=== PATIENT | female | born 1980 | race Caucasian/White ===

== ENCOUNTER → 2017-06-08 16:08 | Outpatient (CLI) | payer MEDICAID, SELFPAY ==
[2017-06-19 08:58] LABS: HPV HC, High Risk Positive (Negative)
[2017-06-19 08:59] LABS: HPV Reflexed? YES, CHARGE PATIENT
== END ==
PROVIDERS: Visit Provider Obstetrics & Gynecology
DX: R87.612 Low grade squamous intraepithelial lesion on cytologic smear of cervix (LGSIL) (principal)
CPT/HCPCS: 87624; 88175; G0145

== ENCOUNTER → 2017-07-10 17:18 | Outpatient (CLI) | payer MEDICAID, SELFPAY ==
[2017-07-10 20:39] LABS: Chlamydia Trachomatis by PCR Negative (Negative); Neisserai gonorrhoeae by PCR Negative (Negative); Probe Check PASS; Sample Adequacy Control PASS; Specimen Processing Control PASS
== END ==
PROVIDERS: Visit Provider Obstetrics & Gynecology
DX: Z11.3 Encounter for screening for infections with a predominantly sexual mode of transmission (principal)
CPT/HCPCS: 87491; 87591

== ENCOUNTER → 2017-07-31 16:12 | Outpatient (CLI) | payer MEDICAID, SELFPAY ==
[2017-07-31 17:31] LABS: Absolute Lymphocyte Count 2.72 X10^3/ul (0.83-4.51); Absolute Neutrophil Count 9.3 X10^3/uL (2.0-7.7); Basophil# 0.03 X10^3/uL; Basophil% 0.2 % (0-1); Eosinophil# 0.32 X10^3/uL; Eosinophils% 2.4 % (0-5); Hematocrit 40.1 % (37-47); Hemoglobin 12.7 g/dl (12.0-15.0); Lymphocyte # 2.72 X10^3/ul (4.0); Lymphocyte % 20.8 % (19-41); Mean Corp Hgb Conc 31.7 g/gl (32-36); Mean Corpuscular Hgb 25.5 pg (27.0-32.0); Mean Corpuscular Volume 80.5 fL (81-99); Mean Platelet Vol. 9.9 fl (6.2-12.0); Monocyte# 0.73 X10^3/uL; Monocyte% 5.6 % (0-10); Neutrophil # 9.25 X10^3/uL (2.7-7.7); Neutrophil % 70.6 % (47-70); Platelet Count 324 K/mm3 (150-450); RBC Distribution Width CV 15.5 % (11.6-14.6); RBC Distribution Width SD 45.5 fl (35.1-43.9); Red Blood Count 4.98 M/mm3 (4.2-5.4); White Blood Count 13.1 K/mm3 (4.4-11.0)
[2017-07-31 17:35] LABS: Color, Urine Yellow (Yellow); Glucose, Dipstick Normal (Normal); Ketone-Dipstick Negative (Negative); Leukocyte Esterase-Dipstick 500 /ul (Negative); Nitrite-Dipstick Negative (Negative); Occult Blood-Urine 50 /ul (Negative); Protein-Dipstick 30 mg/dl (Negative); Specific Gravity, Urine 1.025 (1.002-1.030); Urine Bilirubin Dipstick Negative (Negative); Urine Clarity Sl. Cloudy (Clear); Urine Urobilinogen Normal (Normal)
[2017-07-31 17:39] LABS: POSITIVE COUNT NO; POSITIVE DIFFERENTIAL NO; POSITIVE MORPHOLOGY NO
[2017-07-31 18:13] LABS: Thyroid Stim Hormone (TSH) 2.11 uIU/mL (0.358-3.74)
[2017-08-01 09:46] LABS: HIV - WCH Non-Reactive (Nonreactive); Rubella IgG 19.6 IU/mL
[2017-08-02 12:56] LABS: HEPATITIS B SURFACE AG Negative (Negative); Hep C Antibodies 0.1 s/co ratio (0.0-0.9)
[2017-08-03 03:11] LABS: Prenatal RPR NONREACTIVE (NONREACTIVE)
== END ==
PROVIDERS: Visit Provider Obstetrics & Gynecology
DX: Z34.81 Encounter for supervision of other normal pregnancy, first trimester (principal)
CPT/HCPCS: 36415; 81002; 84443; 85025; 86703; 86762; 86803; 87340

== ENCOUNTER → 2017-12-18 08:59 | Outpatient (CLI) | payer MEDICAID, SELFPAY ==
[2017-12-18 11:45] LABS: Hematocrit 37.6 % (37-47); Hemoglobin 12.1 g/dl (12.0-15.0); Mean Corp Hgb Conc 32.2 g/gl (32-36); Mean Corpuscular Hgb 26.1 pg (27.0-32.0); Mean Platelet Vol. 10.4 fl (6.2-12.0); Platelet Count 232 K/mm3 (150-450); RBC Distribution Width CV 15.3 % (11.6-14.6); RBC Distribution Width SD 44.7 fl (35.1-43.9); Red Blood Count 4.64 M/mm3 (4.2-5.4); White Blood Count 13.6 K/mm3 (4.4-11.0)
[2017-12-18 11:46] LABS: Scan Indicated on CBC? Y/N NO
[2017-12-18 11:51] LABS: Glucose Challenge Gest 1H 50g 143 mg/dL (70-140)
[2017-12-20 16:09] LABS: HPV Reflexed? NOT INDICATED
== END ==
PROVIDERS: Visit Provider Obstetrics & Gynecology
DX: R87.610 Atypical squamous cells of undetermined significance on cytologic smear of cervix (ASC-US) (principal); R87.810 Cervical high risk human papillomavirus (HPV) DNA test positive; Z34.83 Encounter for supervision of other normal pregnancy, third trimester
CPT/HCPCS: 36415; 82950; 85027; 88175; G0145

== ENCOUNTER → 2017-12-28 09:53 | Outpatient (CLI) | payer MEDICAID, SELFPAY ==
[2017-12-28 11:57] LABS: Glucose GTT-Gestation. Fasting 82 mg/dL (<105)
[2017-12-28 11:59] LABS: Glucose GTT-Gestational 1 Hr 140 mg/dL (<190)
[2017-12-28 13:52] LABS: Glucose GTT-Gestational 3 Hr 98 L (<145)
[2017-12-28 13:58] LABS: Glucose GTT-Gestational 2 Hr 113 mg/dL (<165)
== END ==
PROVIDERS: Family Provider Family Medicine; PCP Family Medicine; Visit Provider Obstetrics & Gynecology
DX: O24.912 Unspecified diabetes mellitus in pregnancy, second trimester (principal); Z3A.00 Weeks of gestation of pregnancy not specified
CPT/HCPCS: 36415; 82951; 82952

== ENCOUNTER 2018-01-20 14:41 | Emergency (ER) | payer MEDICAID, SELFPAY ==
[2018-01-20 14:43] VITALS: BP 148/80; PULSE 87; RESP 16; TEMP 37.3; O2SAT 94; BMI 54.4
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
[2018-01-20 15:25] VITALS: BP 143/66; PULSE 85; RESP 16; O2SAT 96
== END 2018-01-20 15:27 | disposition home or self-care (01) ==
LOC: ED 15:22
PROVIDERS: Emergency Provider Emergency Medicine; Family Provider Family Medicine; PCP Family Medicine
DX: O26.893 Other specified pregnancy related conditions, third trimester (principal); Z34.93 Encounter for supervision of normal pregnancy, unspecified, third trimester; Z3A.33 33 weeks gestation of pregnancy; V89.2XXA Person injured in unspecified motor-vehicle accident, traffic, initial encounter; Y93.I9 Activity, other involving external motion; Y92.410 Unspecified street and highway as the place of occurrence of the external cause; Y99.8 Other external cause status
CPT/HCPCS: 59025; 59050; 99218; 99282; G0378

== ENCOUNTER 2018-01-20 15:40 | Outpatient (CLI) | payer MEDICAID, SELFPAY ==
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
== END 2018-01-20 18:30 | disposition home or self-care (01) ==
LOC: WPOUT 16:00 → WP 16:01
PROVIDERS: Family Provider Family Medicine; PCP Family Medicine; Visit Provider Obstetrics & Gynecology
DX: Z34.93 Encounter for supervision of normal pregnancy, unspecified, third trimester (principal)
CPT/HCPCS: 59025; 59050; 99218; G0378

== ENCOUNTER → 2018-02-08 10:46 | Outpatient (CLI) | payer MEDICAID, SELFPAY ==
[2018-02-08 14:45] LABS: Group B Strep DNA By PCR Negative (Negative); Internal Control PASS; Probe Check PASS; Specimen Processing Control PASS
== END ==
PROVIDERS: Visit Provider Obstetrics & Gynecology
DX: Z36.85 Encounter for antenatal screening for Streptococcus B (principal)
CPT/HCPCS: 87081; 87653

== ENCOUNTER 2018-02-12 05:04 | Inpatient (IN) | payer MEDICAID, SELFPAY ==
[2018-02-05 15:43] VITALS: BMI 53.9
--- NOTE | 2018-02-11 | PLAC_PTH ---
PATIENT: CHERI DODSON LOC: WP U#:[id number] AGE/SX: 37/F ROOM: [facility] RE02/12/[address]: Dr. Jasmin Ryder MD : 1980 BED: 1 DIS: 02/15/2018 SPEC #: [id number] RECD: 02/12/18 13:51 STATUS: TARIQ ED #: [id number] NEENA: 02/11/18 00:[address]: Jasmin Ryder DEPT: SURGICAL PATHOLOGY RECD BY: Zack Valdez Tissues: A - Placenta, NOS B - Placenta, NOS Procedures: Surgery Specimen Level IV Surgery Specimen Level V HEADER OPERATION: Repeat section PRE-OP DIAGNOSIS: Repeat section TISSUE SUBMITTED: A - Placenta, B - Tissue MICROSCOPIC DIAGNOSIS A. Placenta: Placental disc - third trimester placenta (514 gm), disrupted. Membranes - no pathologic diagnosis. Umbilical cord - three blood vessels and no pathologic diagnosis. B. Tissue: A piece of placental tissue, on pathologic diagnosis. SJ:rg 02/14/18 MICROSCOPIC DESCRIPTION Slides are reviewed. GROSS DESCRIPTION A - SPECIMEN: PLACENTA / CLINICAL INFORMATION: A. Weight: 3.105 kg B. Gestational Age: 37 weeks C. Sex: Male PLACENTAL WEIGHT (POST FIXATION): The body of the placenta including disrupted pieces weight in aggregate 514 gm. PLACENTAL DIMENSIONS: The body of the placenta measures 22 x 21 x 3 cm and the disrupted pieces measure in aggregate 5 x 4 x 3 cm. PLACENTAL SHAPE: Usual ovoid PLACENTAL WEIGHT FOR GESTATIONAL AGE: Within 10-99th percentile MEMBRANES - Present. The membranes are fragmented. A. Insertion: Marginal B. Site of rupture from edge: Distance of rupture cannot be assessed due to fragmented nature of the membranes. C. Color of membrane: Perez-dodson D. Abnormalities: None UMBILICAL CORD - Present A. Color: Perez-dodson B. Insertion: Paracentral C. Length: 44 cm D. Diameter: 1.4 cm E. Number of vessels: Three F. Abnormalities: None PLACENTAL DISC - Present. The placenta is disrupted. A few smaller pieces of placenta are also noted separately in the container. A. Color of surface: Perez-dodson B. surface abnormalities: None C. Maternal cotyledons: Maternal surface is markedly disrupted. D. Attached retro placental clot: No clot E. Cut surface: Dark red and spongy F. Lesions: None G. Separate clot: Absent SECTIONS SUBMITTED: 1. Membrane roll 2. Cord, maternal end 3. Cord, end 4. Placental disc, and maternal surfaces 5. Placental disc, and maternal surfaces 6. Placental disc, and maternal surfaces JEWELS:ryan 02/13/18 B - Received in fixative is one container labeled with the patient's name and designated placenta. The specimen consists of a piece of pink soft tissue measuring 3 x 2 x 0.5 cm. The specimen is serially sectioned and submitted entirely in one cassette. / Marla 02/12/18 TC:5 CPT: 37291, 16558
[2018-02-12] VITALS (22 sets, daily range): BP systolic 108–150; BP diastolic 45–76; PULSE 62–78; RESP 15–18; TEMP 35.5–37.1; O2SAT 96–99; BMI 54.1
[2018-02-12 06:19] LABS: Absolute Lymphocyte Count 2.66 X10^3/ul (0.83-4.51); Basophil# 0.03 X10^3/uL; Basophil% 0.2 % (0-1); Eosinophil# 0.26 X10^3/uL; Eosinophils% 1.8 % (0-5); Hematocrit 39.8 % (37-47); Hemoglobin 12.8 g/dl (12.0-15.0); Lymphocyte # 2.66 X10^3/ul (4.0); Mean Corp Hgb Conc 32.2 g/gl (32-36); Mean Corpuscular Hgb 25.7 pg (27.0-32.0); Mean Corpuscular Volume 79.8 fL (81-99); Mean Platelet Vol. 11.3 fl (6.2-12.0); Monocyte% 5.4 % (0-10); Neutrophil # 10.98 X10^3/uL (2.7-7.7); Neutrophil % 74.3 % (47-70); Platelet Count 197 K/mm3 (150-450); RBC Distribution Width CV 15.8 % (11.6-14.6); Red Blood Count 4.99 M/mm3 (4.2-5.4); White Blood Count 14.8 K/mm3 (4.4-11.0)
[2018-02-12 06:26] LABS: POSITIVE COUNT NO; POSITIVE DIFFERENTIAL NO; POSITIVE MORPHOLOGY NO
[2018-02-12] MEDS: Lactated Ringers 1,000 ML 999 ML IV (06:33)
[2018-02-12 06:50] LABS: Partial Thromboplast Time 27.4 Seconds (24.1-36.2)
[2018-02-12] MEDS: Sodium Citrate/Citric Acid 30 ML UDC PO (07:12)
[2018-02-12] MEDS: Lactated Ringers 1,000 ML 150 ML IV (07:13)
[2018-02-12] MEDS: Oxytocin 30 units/NS 500 ml 30 UNITS/500 ML IV.SOLN 167 UNITS IV (07:50)
[2018-02-12] MEDS: miSOPROStol 200 MCG Tablet 1000 MCG RECTAL (08:35)
[2018-02-12 09:31] LABS: Pathology Specimen OB SEE PATHOLOGY REPORT
[2018-02-12 09:41] LABS: Pathology Specimen OB SEE PATHOLOGY REPORT
[2018-02-12] MEDS: BACITRACIN 15 GM Tube 1 APPLIC TOPICAL ×4 (10:06→22:05)
[2018-02-12] MEDS: Ondansetron ODT 4 MG Tablet PO (12:24)
[2018-02-12 13:21] LABS: Bedside Glucose 107 mg/dL (70-110)
[2018-02-12 13:26] LABS: Hematocrit 38.1 % (37-47); Hemoglobin 12.3 g/dl (12.0-15.0); Mean Corp Hgb Conc 32.3 g/gl (32-36); Mean Corpuscular Hgb 25.7 pg (27.0-32.0); Mean Corpuscular Volume 79.7 fL (81-99); Platelet Count 191 K/mm3 (150-450); RBC Distribution Width CV 15.5 % (11.6-14.6); RBC Distribution Width SD 45.3 fl (35.1-43.9); Red Blood Count 4.78 M/mm3 (4.2-5.4); White Blood Count 17.9 K/mm3 (4.4-11.0)
[2018-02-12 13:27] LABS: Scan Indicated on CBC? Y/N NO
[2018-02-12] MEDS: Ketorolac 30 MG/ML Syringe IV ×2 (14:06→20:14)
[2018-02-12] MEDS: proMETHazine 25 MG/ML Syringe 12.5 MG IV (15:08)
--- NOTE | 2018-02-12 18:13 | PCM.OP.BLANK ---
Operative Report Date of Procedure: 02/12/18 PROCEDURE: Repeat C section. Preoperative diagnosis: 37 wk EGA Prior C section, planned repeat C section Placenta previa Postop diagnosis: 37 wk EGA Prior C section, planned repeat C section Placenta previa, with placenta percreta noted at L lower uterine segment to bladder flap peritoneum. Anesthesia: Spinal, Mari Chowdary CRNA Surgeon: Jasmin Ryder MD Dowel Pin Worker: Stephen Kothari, CLINICAL SUPPORT TECH EBL 800 cc Complications: none Drains: Lutz draining clear yellow appearing urine Fluids: replacement LR Findings: At amniotomy, clear fluid was noted. Flores viable male in vertex presentation. Apgars 9/9, Baby weight: 7# 1 oz There was a placenta percreta noted with placenta noted immediately upon entering the abdominal cavity. Partial separation of the L side of the uterine incision with placenta noted at bladder flap peritoneum. Fallopian tubes and ovaries normal bilaterally. Paratubal cyst on R drained of clear fluid. PATH: Routine cord blood for typing collected. Routine cord gases were sent. Placenta to path. Small portion of peritoneum from bladder flap at lower uterine segment to path to evaluate for possible attached placental fragment. Narrative account: After the risks, benefits and alternatives of the procedure were reviewed with the patient, informed consent was obtained. The patient was taken to the Operating room with an IV running, and placed in a seated position on the operating table for placement of the spinal. Once the spinal had been administered, she was briefly frog-legged for Lutz catheter placement, and then repositioned to dorsal supine position with leftward displacement of the uterus, and prepped and draped in the usual sterile fashion, with retention straps placed. Once the spinal was deemed adequate, a Pfannenstiel skin incision was created using the knife (through the prior skin incision scar). The incision was carried down to the rectus fascia using the knife. The fascia was nicked in the midline. The fascial incision was extended bilaterally using curved Lai scissors. The superior aspect of the fascial incision was grasped with Unruly clamps and tented up and the underlying rectus abdominal muscles were dissected free. In a similar manner, the inferior aspect of the facial incision was grasped with Unruly clamps tented up and the underlying rectus abdominal muscles were dissected free. The rectus abdominis muscles were in the midline and immediately upon entering the peritoneum ting blood was noted. The operators fingertips were placed at the defect at the lower uterine segment towards the left side (placenta extruding through) and the uterine incision was extended by blunt dissection in a caudad cephalad orientation. The bag of pantoja was then noted superior and to the R of the placental tissue. AROM was performed with an Allis clamp. Clear fluid was noted at amniotomy. The vertex was then delivered atraumatically through the incision. The OP and nares were bulb suctioned on the abdomen. The shoulders delivered easily . The cord clamped x two and cut. And the infant was handed off to the nurse awaiting delivery after briefly showing him to his parents. The baby had a spontaneous, vigorous cry. The placenta was then delivered in pieces. A Banjo curette was used to more fully evacuate the uterus. The uterus was exteriorized and cleared of clots and debris . A portion of possible placenta was noted adherent to the bladder flap peritoneum at the Left side. This peritoneal flap was excised to create more normal appearing anatomy and this piece of tissue was sent to pathology for later evaluation. The uterine incision was repaired with 1 Vicryl in a running locked fashion. A second imbricating layer was then placed, using 1 Monocryl in running nonlocked fashion. Bovie cautery was used to treat any bleeding areas . Excellent hemostasis was noted except for some slight oozing noted at the L uterine angle. At this point the uterus was returned to the abdominal cavity. The gutters were cleared of clots and debris and the incision at the uterus was inspected. Lisa was applied along the entire incision for continued hemostasis. Excellent hemostasis was noted. The peritoneal edges were reapproximated in the midline with a continuous suture of 1 Vicryl. Lisa was applied to this layer. Excellent hemostasis was noted at the subfascial space Several horizontal mattress stitches of 1 Vicryl were placed along the incision and at the L uterine angle for hemostasis. Lisa was dusted over this layer as well. The fascia was closed in a running nonlocked fashion with a Stratofix. The Subcutaneous fatty tissue was Bovie cauterized as needed for hemostasis. Lisa was liberally dusted at this layer to prevent seroma formation. This layer was then reapproximated in a one layer closure of running 3-0 Vicryl to eliminate space. The skin edges were closed in a Subcuticular stitch of 4-0 Monocryl. The incision was cleansed. Cavilon, Steristrips, and Mepilex dressing were applied to the skin . There was a superficial abrasion noted at the L side of the incision. This was dressed with antibiotic ointment. Cytotec 1000 mcg GA was given for additional hemostasis. The patient was then transferred to the recovery room bed in stable condition after tolerating the procedure well. Sponge, lap, needle and instrument counts correct times two. Medications given preop and intraoperatively included: Ancef IV given publications editor to the operating room. The patient also received Pitocin given IV after cord clamp, and Toradol 30 mg IV times one. Methergine 0.2 mg IM x one, Cytotec 1000 mcg GA x one. For a complete listing of medications given preop and intraoperatively, please see the anesthesia record.
--- NOTE | 2018-02-12 18:26 | OP.PCM_ITS ---
Operative Report Date of Procedure: 02/12/18 PROCEDURE: Repeat C section. Preoperative diagnosis: 37 wk EGA Prior C section, planned repeat C section Placenta previa Postop diagnosis: 37 wk EGA Prior C section, planned repeat C section Placenta previa, with placenta percreta noted at L lower uterine segment to bladder flap peritoneum. Anesthesia: Spinal, Mari Chowdary CRNA Surgeon: Jasmin Ryder MD Welfare Worker: Stephen Kothari, FROZEN FOOD SELECTOR EBL 800 cc Complications: none Drains: Lutz draining clear yellow appearing urine Fluids: replacement LR Findings: At amniotomy, clear fluid was noted. Flores viable male in vertex presentation. Apgars 9/9, Baby weight: 7# 1 oz There was a placenta percreta noted with placenta noted immediately upon entering the abdominal cavity. Partial separation of the L side of the uterine incision with placenta noted at bladder flap peritoneum. Fallopian tubes and ovaries normal bilaterally. Paratubal cyst on R drained of clear fluid. PATH: Routine cord blood for typing collected. Routine cord gases were sent. Placenta to path. Small portion of peritoneum from bladder flap at lower uterine segment to path to evaluate for possible attached placental fragment. Narrative account: After the risks, benefits and alternatives of the procedure were reviewed with the patient, informed consent was obtained. The patient was taken to the Operating room with an IV running, and placed in a seated position on the operating table for placement of the spinal. Once the spinal had been administered, she was briefly frog-legged for Lutz catheter placement, and then repositioned to dorsal supine position with leftward displacement of the uterus, and prepped and draped in the usual sterile fashion, with retention straps placed. Once the spinal was deemed adequate, a Pfannenstiel skin incision was created using the knife (through the prior skin incision scar). The incision was carried down to the rectus fascia using the knife. The fascia was nicked in the midline. The fascial incision was extended bilaterally using curved Lai scissors. The superior aspect of the fascial incision was grasped with Unruly clamps and tented up and the underlying rectus abdominal muscles were dissected free. In a similar manner, the inferior aspect of the fa cial incision was grasped with Unruly clamps tented up and the underlying rectus abdominal muscles were dissected free. The rectus abdominis muscles were in the midline and immediately upon entering the peritoneum ting blood was noted. The operators fingertips were placed at the defect at the lower uterine segment towards the left side (placenta extruding through) and the uterine incision was extended by blunt dissection in a caudad cephalad orientation. The bag of pantoja was then noted superior and to the R of the placental tissue. AROM was performed with an Allis clamp. Clear fluid was noted at amniotomy. The vertex was then delivered atraumatically through the incision. The OP and nares were bulb suctioned on the abdomen. The shoulders delivered easily . The cord clamped x two and cut. And the was handed off to the nurse awaiting delivery after briefly showing him to his parents. The baby had a spontaneous, vigorous cry. The placenta was then delivered in pieces. A Banjo curette was used to more fully evacuate the uterus. The uterus was exteriorized and cleared of clots and debris . A portion of possible placenta was noted adherent to the bladder flap peritoneum at the Left side. This peritoneal flap was excised to create more normal appearing anatomy and this piece of tissue was sent to pathology for later evaluation. The uterine incision was repaired with 1 Vicryl in a running locked fashion. A second imbricating layer was then placed, using 1 Monocryl in running nonlocked fashion. Bovie cautery was used to treat any bleeding areas . Excellent hemostasis was noted except for some slight oozing noted at the L uterine angle. At this point the uterus was returned to the abdominal cavity. The gutters were cleared of clots and debris and the incision at the uterus was inspected. Lisa was applied along the entire incision for continued hemostasis. Excellent hemostasis was noted. The peritoneal edges were reapproximated in the midline with a continuous suture of 1 Vicryl. Lisa was applied to this layer. Excellent hemostasis was noted at the subfascial space Several horizontal mattress stitches of 1 Vicryl were placed along the incision and at the L uterine angle for hemostasis. Lisa was dusted over this layer as well. The fascia was closed in a running nonlocked fashion with a Stratofix. The Subcutaneous fatty tissue was Bovie cauterized as needed for hemostasis. Lisa was liberally dusted at this layer to prevent seroma formation. This layer was then reapproximated in a one layer closure of running 3-0 Vicryl to eliminate space. The skin edges were closed in a Subcuticular stitch of 4-0 Monocryl. The incision was cleansed. Cavilon, Steristrips, and Mepilex dressing were applied to the skin . There was a superficial abrasion noted at the L side of the incision. This was dressed with antibiotic ointment. Cytotec 1000 mcg CO was given for additional hemostasis. The patient was then transferred to the recovery room bed in stable condition after tolerating the procedure well. Sponge, lap, needle and instrument counts correct times two. Medications given preop and intraoperatively included: Ancef IV given clinical account liaison to the operating room. The patient also received Pitocin given IV after cord clamp, and Toradol 30 mg IV times one. Methergine 0.2 mg IM x one, Cytotec 1000 mcg CO x one. For a complete listing of medications given preop and intraoperatively, please see the anesthesia record.
[2018-02-12] MEDS: Lactated Ringers 1,000 ML 100 ML IV (19:00)
[2018-02-13] VITALS (7 sets, daily range): BP systolic 98–135; BP diastolic 51–68; PULSE 78–92; RESP 15–20; TEMP 36.6–37; O2SAT 96–98
[2018-02-13] MEDS: Ketorolac 30 MG/ML Syringe IV ×4 (02:22→19:59)
[2018-02-13] MEDS: 0.9% Saline Lock 10 ML Syringe IV ×3 (05:31→19:59)
[2018-02-13 06:19] LABS: Hematocrit 30.7 % (37-47); Mean Corp Hgb Conc 32.6 g/gl (32-36); Mean Corpuscular Hgb 26.4 pg (27.0-32.0); Mean Platelet Vol. 11.4 fl (6.2-12.0); Platelet Count 200 K/mm3 (150-450); RBC Distribution Width SD 46.1 fl (35.1-43.9); Red Blood Count 3.79 M/mm3 (4.2-5.4); White Blood Count 13.9 K/mm3 (4.4-11.0)
[2018-02-13 06:27] LABS: Scan Indicated on CBC? Y/N NO
[2018-02-13] MEDS: Prenatal Vits Tablet 1 TABLET PO (08:45)
[2018-02-13] MEDS: BACITRACIN 15 GM Tube 1 APPLIC TOPICAL ×4 (08:46→23:50)
[2018-02-13] MEDS: Senna/Docusate Sodium 1 Tablet PO (12:48)
[2018-02-13] MEDS: oxyCODONE 5 MG Tablet PO ×2 (12:48→17:56)
--- NOTE | 2018-02-13 15:18 | PCM.PN.OB ---
Subjective: (late entry from AM rounds) POD#1 Repeat C/S at 37 wk for complete placenta previa Doing well Minimal pain. Bottle feeding. No concerns today - Physical Exam General: Alert, Oriented x3, Cooperative, No apparent distress HEENT: Atraumatic Neck: Supple Abdomen: Soft - Fundus firm NT inferior to umbilicus Skin: Incision - Mepliex dressing CDI. topical antibiotic cream noted at skin abrasions (striae irritated at abdominal prep) Neurological: Cranial nerves II-XII grossly intact Psych/Mental Status: Normal Affect Vital Signs Temp Pulse Resp BP Pulse Ox 97.8 F 86 16 132/64 H 96 10 13:27 02/13/18 13:27 02/13/18 13:27 02/13/18 13:27 02/13/18 13:27 Oxygen Delivery Method Room Air Weight: 147.7 kg Body Mass Index (BMI) 54.1 Intake and Output for Last 24 Hours 10/18 02/12/18 02/13/18 23:59 23:59 23:59 Intake Total 3557 / 3557 1833 / 1833 Output Total 425 / 425 920 / 920 Balance 3132 / 3132 913 / 913 Laboratory Tests Past 24 Hrs // 05:03 WBC 13.9 H RBC 3.79 L Hgb 10.0 L Hct 30.7 L MCV 81.0 MCH 26.4 L MCHC 32.6 RDW 16.0 H RDW Differential 46.1 H Plt Count 200 MPV 11.4 Medical Necessity - Tobacco Use Smoking Status: Never smoker Assessment/Plan POD#1 Repeat C/S at 37 wk for complete placenta previa (Declined BPS) Stable postop. Hgb as anticipated with acute blood loss and IV hydration. Increase diet and activity as tolerated. Begin po meds. D/C Lutz for voiding trial. May shower. S/SL IV for continued Toradol doing for 48 hr after surgery. Explained surgical findings: partial uterine incision separation, with placenta percreta. Continue routine care.
--- NOTE | 2018-02-13 15:24 | PCM.DCCSEC ---
Discharge Diet: No Restrictions Discharge Activity: May not drive while taking narcotic pain medications., May Shower, May Take a Tub Bath Return to work on:: 04/08/18 May resume sexual activity in: 4-6 weeks Lifting Restrictions: 20 pounds Additional Activity Instructions:: Nothing in the vagina for 4-6 weeks. You may return to work/school in 6-8 weeks. Change Dressing in (Days):: 4 Remove Dressing in (days):: 4 Cleanse incision/area with: Soap & Water - 4, Keep Dressing Clean & Dry Additional Instructions: If you experience any of the following, contact your healthcare provider. Bleeding that soaks a pad every hour for 2 hours Fever 100.4 or higher Unrelieved incision or abdominal pain Swelling, redness, discharge or bleeding from your incision Problems urinating (including inability to urinate or burning while urinating). Visual changes Severe headache Flu-like symptoms Pain or redness in one of both of your breasts Pain, warmth, tenderness or swelling in your legs, especially the calf area Frequent nausea and vomiting Symptoms of depression or anxiety If you experience any of the following, call 911 or go to the nearest Emergency Room. Chest pain Problems breathing Seizure activity Partial or complete paralysis of a body part, slurred speech, weakness or drooping of the face, or a sudden inability to walk or hold your balance Allergies/Adverse Reactions: Allergies No Known Allergies Allergy (Verified 01/20/18 14:46) Medications to take at Discharge Pnv95/Iron Fum/Folic Acid [ Caplet] 1 each PO DAILY 06/09/16 Acetaminophen [Tylenol] 1,000 mg PO Q8H PRN tablet 02/13/18 Bacitracin Ointment 1 applic TOPICAL 4X/DAY tube 02/13/18 Naproxen [Naprosyn] 250 - 500 mg PO Q8H PRN PRN #30 tab 02/13/18 Oxycodone [Oxyir] 5 - 10 mg PO Q4H PRN PRN 7 Days #20 tab 02/13/18 Senna/Docusate Sodium [Senokot-S] 1 - 2 tab PO DAILY PRN #30 tab 02/13/18 The following prescriptions were given: Oxycodone [Oxyir] 5 - 10 mg PO Q4H PRN PRN 7 Days #20 tab PRN Reason: Mod-Severe Pain (4-02/20) Naproxen [Naprosyn] 250 - 500 mg PO Q8H PRN PRN #30 tab PRN Reason: Mild-Mod Pain (-09/20) Senna/Docusate Sodium [Senokot-S] 1 - 2 tab PO DAILY PRN #30 tab PRN Reason: Constipation Follow-Up: Call to make an appointment with your doctor for an incision check in 1-2 weeks. You will also need a 6 week post- follow up appointment. Test results from this visit will be discussed in further detail at your follow-up appointment, if applicable. Please Follow Up With: Jasmin Ryder MD - [phone] When: Call to make an appointment for an incision check in 2 weeks. Proposed Discharge Date: 02/14/18
--- NOTE | 2018-02-13 15:30 | DCINST_ITS ---
Discharge Diet: No Restrictions Discharge Activity: May not drive while taking narcotic pain medications., May Shower, May Take a Tub Bath Return to work on:: 04/08/18 May resume sexual activity in: 4-6 weeks Lifting Restrictions: 20 pounds Additional Activity Instructions:: Nothing in the vagina for 4-6 weeks. You may return to work/school in 6-8 weeks. Change Dressing in (Days):: 4 Remove Dressing in (days):: 4 Cleanse incision/area with: Soap & Water - 4, Keep Dressing Clean & Dry Additional Instructions: If you experience any of the following, contact your healthcare provider. * Bleeding that soaks a pad every hour for 2 hours * Fever 100.4 or higher * Unrelieved incision or abdominal pain * Swelling, redness, discharge or bleeding from your incision * Problems urinating (including inability to urinate or burning while urinating). * Visual changes * Severe headache * Flu-like symptoms * Pain or redness in one of both of your breasts * Pain, warmth, tenderness or swelling in your legs, especially the calf area * Frequent nausea and vomiting * Symptoms of depression or anxiety If you experience any of the following, call 911 or go to the nearest Emergency Room. * Chest pain * Problems breathing * Seizure activity * Partial or complete paralysis of a body part, slurred speech, weakness or drooping of the face, or a sudden inability to walk or hold your balance Allergies/Adverse Reactions: Allergies No Known Allergies Allergy (Verified 01/20/18 14:46) Medications to take at Discharge Pnv95/Iron Fum/Folic Acid [ Caplet] 1 each PO DAILY 06/09/16 Acetaminophen [Tylenol] 1,000 mg PO Q8H PRN tablet 02/13/18 Bacitracin Ointment 1 applic TOPICAL 4X/DAY tube 02/13/18 Naproxen [Naprosyn] 250 - 500 mg PO Q8H PRN PRN #30 tab 02/13/18 Oxycodone [Oxyir] 5 - 10 mg PO Q4H PRN PRN 7 Days #20 tab 02/13/18 Senna/Docusate Sodium [Senokot-S] 1 - 2 tab PO DAILY PRN #30 tab 02/13/18 The following prescriptions were given: Oxycodone [Oxyir] 5 - 10 mg PO Q4H PRN PRN 7 Days #20 tab PRN Reason: Mod-Severe Pain (4-02/20) Naproxen [Naprosyn] 250 - 500 mg PO Q8H PRN PRN #30 tab PRN Reason: Mild-Mod Pain (1-09/20) Senna/Docusate Sodium [Senokot-S] 1 - 2 tab PO DAILY PRN #30 tab PRN Reason: Constipation Follow-Up: Call to make an appointment with your doctor for an incision check in 1-2 weeks. You will also need a 6 week post- follow up appointment. Test results from this visit will be discussed in further detail at your follow- up appointment, if applicable. Please Follow Up With: Jasmin Ryder MD - [phone] When: Call to make an appointment for an incision check in 2 weeks. Proposed Discharge Date: 02/14/18
[2018-02-14 01:27] VITALS: BP 137/69; PULSE 94; RESP 20; TEMP 36.8
[2018-02-14] MEDS: 0.9% Saline Lock 10 ML Syringe IV ×2 (01:29→08:34)
[2018-02-14] MEDS: Ketorolac 30 MG/ML Syringe IV ×2 (01:29→08:34)
[2018-02-14] MEDS: Senna/Docusate Sodium 1 Tablet PO (08:34)
[2018-02-14 08:35] VITALS: BP 141/66; PULSE 87; RESP 24; TEMP 36.8; O2SAT 96
--- NOTE | 2018-02-14 08:47 | PCM.PN.OB ---
Subjective: POD#2 Repeat C/S at 37 wks, placenta previa, uterine scar separation / placenta percreta. Doing OK. but painful this am. Toradol due. Using prn abdominal binder. Tolerated diet, voiding well. Bottle feeding. Probably will stay today for pain management and additional assistance prn. - Physical Exam General: Alert, Oriented x3, Cooperative, No apparent distress HEENT: Atraumatic Neck: Supple Abdomen: Soft - fundus firm NT approx 1-2 cm inferior to umbilicus Skin: Incision - Mepilex dressing CDI. Beginning to peel off at the L side Neurological: Cranial nerves II-XII grossly intact Psych/Mental Status: Normal Affect Vital Signs Temp Pulse Resp BP Pulse Ox 98.3 F 94 20 H 137/69 H 96 /08/29 01:27 10 01:27 10 01:27 10 01:27 02/13/18 13:27 Oxygen Delivery Method Room Air Weight: 147.7 kg Body Mass Index (BMI) 54.1 Intake and Output for Last 24 Hours 10//18 1018 02/14/18 23:59 23:59 23:59 Intake Total 3557 / 3557 1833 / 1833 Output Total 425 / 425 1221 / 1221 Balance 3132 / 3132 612 / 612 Medical Necessity - Tobacco Use Smoking Status: Never smoker Assessment/Plan POD#2 Repeat C/S at 37 wk for complete placenta previa (Declined BPS) Stable postop. Tolerating diet well. Voiding well. Painful. Prefers to stay for now 2/2 pain control. encouraged abdominal binder, regular dosing of Tylenol, Aleve (after last Toradol this am) and prn OxyIR. Continue routine care.
[2018-02-14] MEDS: BACITRACIN 15 GM Tube 1 APPLIC TOPICAL ×4 (09:17→22:39)
[2018-02-14] MEDS: Prenatal Vits Tablet 1 TABLET PO (11:34)
[2018-02-14] MEDS: oxyCODONE 5 MG Tablet PO ×2 (11:34→18:28)
[2018-02-14 14:18] VITALS: BP 143/69; PULSE 95; RESP 18; TEMP 37.1; O2SAT 98
[2018-02-14 15:05] VITALS: BP 131/62
[2018-02-14] MEDS: Naproxen 250 MG Tablet PO (16:41)
[2018-02-14 20:20] VITALS: BP 147/75; PULSE 94; RESP 20; TEMP 36.3
[2018-02-15] MEDS: oxyCODONE 5 MG Tablet PO ×2 (00:15→09:51)
[2018-02-15 02:05] VITALS: BP 118/59; PULSE 90; RESP 18; TEMP 36.6; O2SAT 96
--- NOTE | 2018-02-15 07:11 | PCM.PN.OB ---
Subjective: POD#3 Repeat C/S Placenta previa, percreta, uterine incision partial separation. Doing well. Pain more well controlled. Ready to go home today. Prefers to leave dressing on for now. Advised to remove at home. - Physical Exam General: Alert, Oriented x3, Cooperative, No apparent distress HEENT: Atraumatic Neck: Supple Abdomen: Soft - Fundus firm NT at umbilicus Skin: Incision - Mepilex CDI. Peeling off on L side. Neurological: Cranial nerves II-XII grossly intact Psych/Mental Status: Normal Affect Vital Signs Temp Pulse Resp BP Pulse Ox 97.9 F 90 18 118/59 L 96 10 02:05 02/15/18 02:05 02/15/18 02:05 02/15/18 02:05 02/15/18 02:05 Oxygen Delivery Method Room Air Weight: 147.7 kg Body Mass Index (BMI) 54.1 Intake and Output for Last 24 Hours 10//18 10/02/15/18 23:59 23:59 23:59 Intake Total 1833 / 1833 Output Total 1221 / 1221 Balance 612 / 612 Medical Necessity - Tobacco Use Smoking Status: Never smoker Assessment/Plan POD#3 Repeat C/S at 37 wk for complete placenta previa (Declined BPS) Stable postop. Dischg home today. RTO in 2 wk for postop incision check.
--- NOTE | 2018-02-15 07:17 | DS.PCM_ITS ---
Discharge Date and Diagnosis Date of Admission: 12/04/16 - 39 wk prior C/S, repeat C section Hospital Course and Treatment Operations: - - Repeat C section Summary of Care Provided: The patient is a 37 year old female with h/o prior C section deliveries. Presents for repeat C/S Declined BPS, though considered earlier in . Admitted for repeat C/S at 37 wk secondary to placenta previa. C/S performed on 02/12/18 Findings: At amniotomy, clear fluid was noted. Flores viable male in vertex presentation. Apgars 9/9, Baby weight: 7# 1 oz There was a placenta percreta noted with placenta noted immediately upon entering the abdomi nal cavity. Partial separation of the L side of the uterine incision with small portion of placenta noted implanted at bladder flap peritoneum. Fallopian tubes and ovaries normal bilaterally. Paratubal cyst on R drained of clear fluid. Postop course unremarkable. Requested dischg home on POD#3 Discharge Diet: No Restrictions Discharge Activity: May not drive while taking narcotic pain medications., May Shower, May Take a Tub Bath Return to work on:: 04/08/18 May resume sexual activity in: 4-6 weeks Additional Activity Instructions:: Nothing in the vagina for 4-6 weeks. You may return to work/school in 6-8 weeks. Change Dressing in (Days):: 4 Remove Dressing in (days):: 4 Cleanse incision/area with: Soap & Water - 4, Keep Dressing Clean & Dry Home Medications: Medications to take at Discharge Pnv95/Iron Fum/Folic Acid [ Caplet] 1 each PO DAILY 06/09/16 Acetaminophen [Tylenol] 1,000 mg PO Q8H PRN tablet 02/13/18 Bacitracin Ointment 1 applic TOPICAL 4X/DAY tube 02/13/18 Naproxen [Naprosyn] 250 - 500 mg PO Q8H PRN PRN #30 tab 02/13/18 Oxycodone [Oxyir] 5 - 10 mg PO Q4H PRN PRN 7 Days #20 tab 02/13/18 Senna/Docusate Sodium [Senokot-S] 1 - 2 tab PO DAILY PRN #30 tab 02/13/18 Following Prescrptions Were Given to Patient: Oxycodone [Oxyir] 5 - 10 mg PO Q4H PRN PRN 7 Days #20 tab PRN Reason: Mod-Severe Pain (-02/20) Naproxen [Naprosyn] 250 - 500 mg PO Q8H PRN PRN #30 tab PRN Reason: Mild-Mod Pain (-09/20) Senna/Docusate Sodium [Senokot-S] 1 - 2 tab PO DAILY PRN #30 tab PRN Reason: Constipation Please Follow Up With: Jasmin Ryder MD - [phone] When: Call to make an appointment for an incision check in 2 weeks. Medical Necessity - Tobacco Use Smoking Status: Never smoker Meaningful Use Info Meaningful Use Diagnoses (Choose all that apply): None applicable
[2018-02-15] MEDS: Senna/Docusate Sodium 1 Tablet PO (09:51)
[2018-02-15] MEDS: BACITRACIN 15 GM Tube 1 APPLIC TOPICAL (09:53)
[2018-02-15 09:54] VITALS: BP 146/62; PULSE 88; RESP 18; TEMP 36.8; O2SAT 98
== END 2018-02-15 11:00 | disposition home or self-care (01) | DRG 370 ==
PROVIDERS: Admitting Provider Obstetrics & Gynecology; Referring Provider Obstetrics & Gynecology; Visit Provider Obstetrics & Gynecology
PROC: 10D00Z1 Extraction of Products of Conception, Low, Open Approach (ICD-10-PCS; CPT 59514; principal; 2018-02-12 07:15)
DX: O43.233 Placenta percreta, third trimester (principal); O44.03 Complete placenta previa NOS or without hemorrhage, third trimester; Z3A.37 37 weeks gestation of pregnancy; Z37.0 Single live birth
CPT/HCPCS: 82962; 85025; 85027; 85610; 85730; 86850; 86900; 88305; 88307; 99218; J7120; A4216; G0378; J2405

== ENCOUNTER → 2018-03-25 16:30 | Outpatient (CLI) | payer MEDICAID, SELFPAY ==
[2018-03-31 11:30] LABS: HPV Reflexed? NOT INDICATED
== END ==
PROVIDERS: Referring Provider Obstetrics & Gynecology; Visit Provider Obstetrics & Gynecology
DX: Z12.4 Encounter for screening for malignant neoplasm of cervix (principal)
CPT/HCPCS: 88175; G0145

== ENCOUNTER 2019-04-29 22:00 | Emergency (ER) | payer MEDICAID, SELFPAY ==
[2019-04-29 22:01] VITALS: BP 159/90; PULSE 111; RESP 20; TEMP 39.5; O2SAT 96; BMI 54.6
--- NOTE | 2019-04-29 22:16 | ED.DCSUM_ITS ---
History of Present Illness Chief Complaint: Fever Informant: Patient Onset: Yesterday Context: Gradual Onset Timing: Continuous Current Severity: Moderate Maximum Severity: Moderate Narrative: The patient is an otherwise healthy 38-year-old female with no significant medical history the presents to the emergency department with cough and fever. Patient's had symptoms for the past 2 days. She states that initially started as a dry, itching throat. She states she began to have fevers and chills. She had cough with a few bouts of posttussive emesis. She does describe myalgias and arthralgias. She has been taking Tylenol, last dose at 9 PM to control the fever. She states her fevers been as high as 105. She denies any history of immunosuppression. She has no history of underlying lung disease. She is otherwise been in her normal state of health. Prior similar symptoms: No Recent Illness/Hospitalization: No Past Medical History - Allergies and Home Meds Allergies/Adverse Reactions: Allergies No Known Allergies Allergy (Verified 04/29/19 22:00) Primary Care Physician: NOT,DEFINED [NON-STAFF] - Prior records reviewed: Yes Past Medical History: None Surgical History: noncontributory Smoking Status: Never smoker Review of Systems General: Reports: Chills, Fever Eyes: Denies: Visual changes - bilaterally, Diplopia ENT: Reports: Sore throat Cardiovascular: Denies: Chest pain, Palpitations Respiratory: Reports: Cough Gastrointestinal: Denies: Abdominal pain, Nausea, Vomiting, Diarrhea, Melena, Hematochezia Genitourinary: Denies: Dysuria, Hematuria, Frequency Musculoskeletal: Denies: Back pain, Extremity Pain Skin: Denies: Rash, Wounds Neurological: Denies: Headache, Weakness, Numbness Physical Exam Vital Signs/Narrative: Vital Signs Temp Pulse Resp BP Pulse Ox 04/29/19 22:01 103.1 F H 111 H 20 H 159/90 H 96 Inital Vital Signs reviewed: Yes General: Well nourished, Well developed, No Acute Distress Head: Normocephalic, Atraumatic Eyes: Perrl, EOMI ENT: Moist mucous membranes, No rhinorrhea Neck: Supple, Nontender Cardiovascular: Regular rate, Regular rhythm, No murmurs Respiratory: No distress, Chest nontender, Wheezing Abdomen: Soft, Nontender, Nondistended, Normal bowel sounds Back: Nontender, Normal Inspection Extremities: Nontender, No edema Skin: Normal color, No rash Neurological: Alert, Oriented x3, Cranial nerves II-XII grossly intact, Normal Strength, Normal Sensation Psychological: Normal affect, Normal Mood Diagnostic/Tx/Re-eval Chest X-Ray - ED: 2 View, Normal, Heart, Mediastinum, Right Infiltrate - Medical Decision Making Patient presents with cough and fever. She did have some focal change in lung sounds in the right middle lobe area. She was febrile and tachycardic. Metabolic work-up was pursued. Influenza was obtained was negative. The patient was given fluids and Toradol. Her fever had abated. Her heart rate was now in the 90s. Chest x-ray does show a right upper lobe pneumonia. Lactic was added. Blood cultures were obtained. The patient was covered with broad- spectrum antibiotics. At this point, she has no tachypnea. Her tachycardia has resolved. I did discuss options with the patient. She wants to attempt outpatient therapy. Her pneumonia severity index is low. The patient will be given fluids and antibiotics and be reevaluated. As long she continues to maintain improvement and is not requiring oxygen, I do feel that she can safely be discharged. She will be kept on amoxicillin and azithromycin. She was counseled on concerning symptoms and reasons to return. Impression 1. Community-acquired pneumonia ED Disposition - Plan for ED Patient: Instructions: PNEUMONIA (Adult) Prescriptions: Amox/Clavulanate Tablet [Augmentin Tablet] 875 mg PO Q12H #20 tab Prescription Printed Azithromycin [Zithromax] 250 mg PO DAILY #4 tab Prescription Printed Referrals: NOT,DEFINED [NON-STAFF] -
[2019-04-29] MEDS: Ipratropium/Albuterol Sulfate 3 ML AMPUL.NEB INHALATION (22:27)
[2019-04-29 22:31] VITALS: PULSE 115; RESP 20
[2019-04-29] MEDS: 0.9% Normal Saline 1,000 ML 1000 ML IV ×2 (22:32→22:35)
[2019-04-29] MEDS: Ondansetron 4 MG/2 ML Vial IV (22:32)
[2019-04-29] MEDS: Ketorolac 30 MG/ML Syringe IV (22:33)
[2019-04-29 22:48] LABS: Absolute Lymphocyte Count 1.61 X10^3/uL (0.83-4.51); Absolute Neutrophil Count 11.7 X10^3/uL (2.0-7.7); Basophil# 0.07 X10^3/uL; Basophil% 0.5 % (0-1); Eosinophil# 0.51 X10^3/uL; Eosinophils% 3.4 % (0-5); Hematocrit 40.5 % (37-47); Hemoglobin 12.9 g/dL (12.0-15.0); Lymphocyte # 1.61 X10^3/ul (4.0); Lymphocyte % 10.7 % (19-41); Mean Corp Hgb Conc 31.9 g/dL (32-36); Mean Corpuscular Hgb 24.6 pg (27.0-32.0); Mean Corpuscular Volume 77.3 fL (81-99); Mean Platelet Vol. 9.8 fl (6.2-12.0); Monocyte# 0.98 X10^3/uL; Monocyte% 6.5 % (0-10); NRBC Flagged by Analyzer 0 % (0-5); Neutrophil # 11.72 X10^3/uL (2.7-7.7); Neutrophil % 78.2 % (47-70); Platelet Count 254 K/mm3 (150-450); RBC Distribution Width CV 15.2 % (11.6-14.6); RBC Distribution Width SD 42.5 fl (35.1-43.9); Red Blood Count 5.24 M/mm3 (4.2-5.4)
--- NOTE | 2019-04-29 22:55 | RAD_ITS ---
STUDY: X-RAY CHEST REASON FOR EXAM: Female, 38 years old. Cough. Shortness of breath. TECHNIQUE: PA and lateral views of the chest. COMPARISON: None. FINDINGS: There are monitoring devices. There is right upper lobe perihilar groundglass and airspace opacity. There is no demonstrated pleural abnormality. Normal size heart. Normal mediastinum and casey. Normal visualized pulmonary arteries. Normal visualized aortic arch and descending thoracic aorta. Normal visualized thoracic spine. Normal visualized ribs, clavicles, and shoulders. There is no demonstrated abnormality of the visualized soft tissue structures of the upper abdomen. RAD/Chest PA and Lateral IMPRESSION: Right upper lobe pneumonia. Electronically Signed: Dominic Mclean MD at 23:26 EST , Service support ,
[2019-04-29 23:02] LABS: Anion Gap 7 (5-15); BUN 13 mg/dL (7-18); BUN/Creat Ratio 16.4 RATIO (10-20); Calcium,Total 8.5 mg/dL (8.5-10.1); Chloride 105 mmol/L (98-107); Creatinine, Serum 0.79 mg/dL (0.55-1.02); EST Glomerular Filtration Rate 87 mL/min (>60); Est Glom Filt Rate - Afr Amer 105 mL/min (>60); Estimated Creatinine Clearance 88.59 ml/min; Glucose 106 mg/dL (74-106); Potassium 4.1 mmol/L (3.5-5.1); Sodium Level 136 mmol/L (136-145)
[2019-04-29 23:28] VITALS: BP 139/78; PULSE 97; RESP 24; TEMP 37.9; O2SAT 92
[2019-04-29] MEDS: Ceftriaxone 1 GM/50 ML BAG IV (23:28)
[2019-04-29 23:51] LABS: Lactic Acid 0.7 mmol/L (0.4-1.9)
[2019-04-30 01:30] VITALS: BP 120/68; PULSE 87; RESP 15; TEMP 37.9; O2SAT 94
[2019-04-30 02:00] VITALS: BP 109/73; PULSE 92; RESP 18; TEMP 36.9; O2SAT 97
[2019-04-30 02:08] VITALS: RESP 18
== END 2019-04-30 02:09 | disposition home or self-care (01) ==
PROVIDERS: Emergency Provider Emergency Medicine
DX: J18.9 Pneumonia, unspecified organism (principal)
CPT/HCPCS: 71046; 80048; 83605; 85025; 87040; 87804; 94640; 96361; 96365; 96367; 96375; 99285; J7030; J7050; A4216; J2405

== ENCOUNTER → 2020-12-10 | Outpatient (CLI) | payer MEDICAID, SELFPAY ==
--- NOTE | 2020-12-10 15:00 | ASPSI_PTH ---
PATIENT: CHERI DODSON LOC: [facility] U#:[id number] AGE/SX: 40/F ROOM: RE12/10/[address]: Dr. Jhoana Miranda MD : 1980 BED: DIS: 12/10/2020 SPEC #: [id number] RECD: 12/10/20 17:23 STATUS: TARIQ RELisandro #: [id number] NEENA: 12/10/20 15:[address]: Jhoana Miranda DEPT: CYTOLOGY RECD BY: Sandoval Kraus ENTERED: 12/13/20 08:25 SP TYPE: ASP BERNABE GARCIAS DR: Dr. Peter Garg MD Tissues: A - Thyroid gland, NOS B - Thyroid gland, NOS C - Thyroid gland, NOS D - Thyroid gland, NOS Procedures: Surgery Specimen Level IV Cytospin Fluid Cytology Other HEADER OPERATION: Ultrasound-guided fine needle aspiration of bilateral thyroid PRE-OP DIAGNOSIS: Thyroid nodules TISSUE SUBMITTED: A - Right thyroid fluid for cytology, B - Right thyroid slides x8, C - Left thyroid fluid for cytology, B - Left thyroid slides x8 DIAGNOSIS CYTOLOGY A. Right thyroid nodule fluid, ultrasound-guided FNA (cytospin and cell block): Consistent with benign follicular/colloid nodule. Adequate for evaluation. B. Right thyroid nodule, ultrasound-guided FNA (smears): Consistent with benign follicular/colloid nodule. Adequate for evaluation. C. Left thyroid nodule fluid, ultrasound-guided FNA (cytospin and cell block): Consistent with benign follicular/colloid nodule. Adequate for evaluation. D. Left thyroid nodule, ultrasound-guided FNA (smears): Consistent with benign follicular/colloid nodule. Adequate for evaluation. SJ:rg 12/14/2020 COMMENT Correlation with clinical, radiologic findings and appropriate follow up are necessary. CYTOLOGY STUDY Slides are reviewed. CYTOLOGY GROSS A - Received is 35 ml of brown cloudy fluid labeled with the patient's name and and designated per the requisition as right thyroid. Submitted for cytology preparation including cell block. B - Received are eight smears labeled with the patient's name and designated per the requisition as right thyroid. Submitted for staining. C - Received is 35 ml of slightly brown cloudy fluid labeled with the patient's name and and designated per the requisition as left thyroid. Submitted for cytology preparation including cell block. D - Received are eight smears labeled with the patient's name and designated per the requisition as left thyroid. Submitted for staining. / ryan 12/13/2020 TC:5 CPT: 74863 x2, 21992 x2, 43722 x2
== END | disposition home or self-care (01) ==
LOC: LABSPEC 12-13 08:36
PROVIDERS: PCP Family Medicine; Referring Provider Surgery; Visit Provider Surgery
DX: E04.2 Nontoxic multinodular goiter (principal)
CPT/HCPCS: 88108; 88161; 88305

== ENCOUNTER 2024-07-06 05:22 | Emergency (ER) | payer MEDICAID, SELFPAY ==
[2024-07-06 05:23] VITALS: PULSE 74; RESP 16; TEMP 36.9; O2SAT 98; BMI 37.5
[2024-07-06 07:07] LABS: Absolute Lymphocyte Count 1.06 X10^3/uL (0.83-4.51); Absolute Neutrophil Count 10.1 X10^3/uL (2.0-7.7); Basophil# 0.06 X10^3/uL; Basophil% 0.5 % (0-1); Eosinophil# 0.21 X10^3/uL; Eosinophils% 1.7 % (0-5); Hematocrit 36.7 % (37-47); Hemoglobin 11.7 g/dL (12.0-15.0); Lymphocyte # 1.06 X10^3/ul (0.83-4.51); Lymphocyte % 8.6 % (19-41); Mean Corp Hgb Conc 31.9 g/dL (32-36); Mean Corpuscular Hgb 25.3 pg (27.0-32.0); Mean Corpuscular Volume 79.4 fL (81-99); Mean Platelet Vol. 9.7 fl (6.2-12.0); Monocyte# 0.74 X10^3/uL; NRBC Flagged by Analyzer 0 % (0-5); Neutrophil # 10.14 X10^3/uL (2.7-7.7); Neutrophil % 82.7 % (47-70); Platelet Count 330 K/mm3 (150-450); RBC Distribution Width CV 15.4 % (11.6-14.6); RBC Distribution Width SD 44.2 fl (35.1-43.9); Red Blood Count 4.62 M/mm3 (4.2-5.4); White Blood Count 12.3 K/mm3 (4.4-11.0)
[2024-07-06] MEDS: Ondansetron 4 MG/2 ML Vial IV (07:13)
[2024-07-06] MEDS: 0.9% Normal Saline (1000mL) 1,000 ML 999 ML IV (07:13)
--- NOTE | 2024-07-06 07:14 | EX.ED.DYSGE1 ---
HPI History of Present Illness Chief Complaint: General Illness Informant: patient Narrative Narrative: Patient is a 43-year-old female with no reported significant past medical history. She states that her child has been sick with congestion and cough. She states over the past 2 days she had sinus congestion drainage and cough which then progressed to bouts of nausea vomiting and diarrhea. The patient states has been having difficulty keeping food or fluid down and feels extremely dehydrated and secondary to this comes in for evaluation. PFSH PFSH Medical History no medical history no medical history Home Medications ?Medication ?Instructions ?Recorded ?Last Taken ?Type amoxicillin 875 mg-potassium 875 mg PO Q12H #20 tabs 04/29/19 Unknown Rx clavulanate 125 mg tablet azithromycin 250 mg tablet 250 mg PO DAILY #4 tabs 04/29/19 Unknown Rx codeine 10 mg-guaifenesin 100 mg/5 10 ml PO 4X/DAY PRN flu symptoms 7 07/06/24 Unknown Rx mL oral liquid (Guaifenesin AC) days #280 mL ondansetron 4 mg disintegrating 4 mg PO TID PRN nausea and 07/06/24 Unknown Rx tablet vomiting #21 tabs Allergy/AdvReac Type Severity Reaction Status Date / Time No Known Allergies Allergy Verified 07/06/24 05:28 Surgical History (Updated 07/06/24 @ 05:26 by Av Layton) H/O thyroidectomy Social History Smoking Status: Never smoker ROS ROS ED Constitutional Constitutional ED: Denies chills or fever(s) ENT ENT ED: Reports rhinorrhea and sore throat Cardiovascular Cardiovascular: Denies chest pain Respiratory/Chest Respiratory/Chest: Reports cough; Denies dyspnea Gastrointestinal Gastrointestinal: Reports diarrhea, nausea and vomiting; Denies abdominal pain Genitourinary Genitourinary ED: Denies dysuria Musculoskeletal Musculoskeletal: Reports myalgias Integumentary Denies rash Neurologic Neurologic: Reports headache(s) Hematologic/Lymphatic Hematologic/Lymphatic: Denies easy bleeding or easy bruising EXAM Physical Exam Const Vital Signs: 07/06/24 05:23 07/06/24 05:26 07/06/24 08:05 Temperature 98.5 F Temperature Source Oral Pulse Rate 74 70 Respiratory Rate 16 16 Respiratory Effort Normal Non-Labored Respiratory Pattern Normal Blood Pressure 118/74 Blood Pressure Mean 88 Pulse Ox 98 99 Oxygen Delivery Method Room Air Room Air Positive well nourished and well developed General Appearance ED: well developed; Negative for pallor HEENT HEENT Narrative: Mucous membranes are slightly dry and tacky No tongue or lip swelling no oral lesions no airway edema or compromise There is cobblestoning noted in the posterior pharynx consistent with sinus drainage No hard palate petechiae trismus change in voice or difficulty with secretions Eyes PERRL and EOMs intact bilaterally General Eye ED: Negative for scleral icterus Neck supple Neck Narrative: No nuchal rigidity or meningeal signs Resp normal respiratory effort and clear to auscultation bilaterally Resp Narrative: No signs of respiratory distress Cardio regular rate and regular rhythm Rate: other Other Details: Heart is regular rate and rhythm without murmurs rubs or gallop Radial and carotid pulses are equal and symmetric GI non-tender, non-distended and no masses GI Narrative: Abdomen is soft nontender nondistended with hyperactive bowel sounds. No voluntary guarding or rigidity or pulsatile mass Auscultation: hyperactive bowel sounds Palpation: soft Extremity normal to inspection Extremity Narrative: No asymmetric edema no pitting edema negative Homans' sign bilaterally Neuro oriented x3, CN's II-XII intact bilaterally and no sensory deficits noted Sensorium / Orientation: alert Motor Exam: strength 5/5 throughout Psych mental status grossly normal Skin no rashes or lesions noted and No skin turgor normal Skin Narrative: Skin turgor is slightly increased General Skin Exam: Negative for jaundice or pallor MDM MDM MDM Narrative Medical decision making narrative: Patient arrived to the ER with stable vitals and a soft nonsurgical abdomen so I felt no need for an emergent CT scan. Her history and exam is concerning for viral infection such as COVID influenza or RSV versus potential rotavirus or norovirus. With patient having bouts of nausea and vomiting there is concern for potential complication versus acute kidney injury versus electrolyte abnormality versus pancreatitis or biliary colic or acute cholecystitis. Patient also may have atypical UTI or pyelonephritis. Blood work showed a mild leukocytosis of 12.3 but I feel this is most likely due to viral infection and/or stress response. Otherwise kidney function is normal there is no clinically significant Carol abnormality liver enzymes are normal going against a biliary cause and lipase is also normal. Patient is not going against a complication. Urine shows increased Hernando gravity consistent with dehydration and history of otherwise no signs of acute infection. After receiving IV fluids and Zofran patient reported feeling much better and she had no further bouts of vomiting. She also denies any recent travel outside the country or antibiotic use going against an infectious diarrhea such as Salmonella E. coli or C. difficile and therefore do not feel there is need for stool culture. At this time with improvement of symptoms and overall negative workup I do not feel need for a CT scan and patient is otherwise safe for discharge with symptomatic care History & Record Review Discussion w/independent historian: Patient Lab Data Attestation: I reviewed the patient's lab results. Labs: Laboratory Results - last 24 hr 07/06/24 07/06/24 06:45 08:00 WBC 12.3 H RBC 4.62 Hgb 11.7 L Hct 36.7 L MCV 79.4 L MCH 25.3 L MCHC 31.9 L RDW Std Deviation 44.2 H RDW Coeff of Naheed 15.4 H Plt Count 330 MPV 9.7 Immature Gran % (Auto) 0.500 Neut % (Auto) 82.7 H Lymph % (Auto) 8.6 L Crisp % (Auto) 6.0 Eos % (Auto) 1.7 Baso % (Auto) 0.5 Absolute Neuts (auto) 10.1 H Absolute Lymphs (auto) 1.06 Nucleated RBC % 0 Sodium 137 Potassium 4.0 Chloride 108 H Carbon Dioxide 23.0 Anion Gap 6 BUN 17 Creatinine 0.58 Estim Creat Clear Calc 156.81 Est GFR (MDRD) Af Amer 147 Est GFR (MDRD) Non-Af 121 BUN/Creatinine Ratio 29.3 H Glucose 84 Calcium 8.3 L Total Bilirubin 0.40 AST 21 ALT 25 Alkaline Phosphatase 76 Total Protein 7.4 Albumin 3.5 Globulin 3.9 Albumin/Globulin Ratio 0.9 Lipase 31 L Serum , Qual NEGATIVE Urine Color Yellow Urine Clarity Clear Urine pH 5.0 Ur Specific [place] 1.020 Urine Protein 15 H Urine Glucose (UA) Normal Urine Ketones Negative Urine Occult Blood 50 H Urine Nitrite Negative Urine Bilirubin 1 H Urine Urobilinogen Normal Ur Leukocyte Esterase Negative Discharge Plan Triage Chief Complaint: General Illness ED Provider: Awais Leslie Dx/Rx/DC Orders Clinical Impression: Dehydration, Nausea vomiting and diarrhea, Viral syndrome Instructions: ED Dehydration (Adult), ED Viral Syndrome (Adult) Prescriptions: New ondansetron 4 mg tablet,disintegrating 4 mg PO TID PRN (Reason: nausea and vomiting) Qty: 21 0RF codeine-guaifenesin [Guaifenesin AC] 10-100 mg/5 mL liquid 10 ml PO 4X/DAY PRN (Reason: flu symptoms) 7 Days Qty: 280 0RF No Action azithromycin 250 MG tablet 250 mg PO DAILY Qty: 4 0RF amoxicillin-pot clavulanate 875 MG tablet 875 mg PO Q12H Qty: 20 0RF Stand Alone Forms: ED Work / School Excuse Primary Care Provider: Peter Garg Referrals: Peter Garg MD [Primary Care Provider] - Activity Restrictions/Additional Instructions: Your workup today was negative for COVID flu and RSV however your history and exam indicates you most likely have a combination of upper respiratory tract infection as well as viral stomach infection such as rhinovirus and rotavirus. These are self-limiting infections. Please use the prescribed medications from the ER to help control symptoms and if you have any further concerns please return for repeat evaluation Print Language: Bulgarian Disposition Disposition: Home, Self Care
[2024-07-06 07:15] LABS: Internal QC Validated? YES +Cl - CLEAR BKGD; Pregnancy, Serum, hCG Quali. NEGATIVE Negative
[2024-07-06 07:26] LABS: Lipase 31 U/L (73-393)
[2024-07-06 07:31] LABS: ALB/GLOB Ratio 0.9 RATIO (0.9-2.4); AST(SGOT) 21 U/L (15-37); Alanine Aminotransfer ALT/SGPT 25 U/L (13-56); Albumin, Serum 3.5 g/dL (3.2-5.0); Alkaline Phosphatase 76 U/L (45-117); Anion Gap 6 (5-15); BUN 17 mg/dL (7-18); BUN/Creat Ratio 29.3 RATIO (10-20); Calcium,Total 8.3 mg/dL (8.5-10.1); Chloride 108 mmol/L (98-107); Creatinine, Serum 0.58 mg/dL (0.55-1.02); EST Glomerular Filtration Rate 121 mL/min (>60); Est Glom Filt Rate - Afr Amer 147 mL/min (>60); Estimated Creatinine Clearance 156.81 ml/min; Globulin 3.9 g/dL (2.2-4.2); Glucose 84 mg/dL (74-106); Protein, Total 7.4 g/dL (6.4-8.2); Sodium Level 137 mmol/L (136-145)
[2024-07-06 08:05] VITALS: BP 118/74; PULSE 70; RESP 16; O2SAT 99
[2024-07-06 08:08] LABS: Bacteria 0 SEEN /hpf (None Seen)
[2024-07-06 08:33] LABS: Glucose, Dipstick Normal (Normal); Ketone-Dipstick Negative (Negative); Leukocyte Esterase-Dipstick Negative /ul (Negative); Nitrite-Dipstick Negative (Negative); Occult Blood-Urine 50 /ul (Negative); Protein-Dipstick 15 mg/dl (Negative); Urine Urobilinogen Normal (Normal)
[2024-07-06 08:34] LABS: Color, Urine Yellow (Yellow); Urine Bilirubin Dipstick 1 mg/dL (Negative); Urine Clarity Clear (Clear)
[2024-07-06 09:52] LABS: Mucous, Urine 1+ /hpf (<or=2+); Red Blood Cells-Urine 0-5 SEEN /hpf (0-5); Squamous Epithelial Cells - UA 0-5 SEEN /hpf (5-10); White Blood Cells 0-5 SEEN /hpf (0-5)
[2024-07-06 10:09] VITALS: BP 118/74; PULSE 70; RESP 16; TEMP 36.6; O2SAT 99
== END 2024-07-06 10:17 | disposition home or self-care (01) ==
PROVIDERS: Emergency Provider Emergency Medicine; PCP Family Medicine; Visit Provider Emergency Medicine
DX: E86.0 Dehydration (principal); R11.2 Nausea with vomiting, unspecified; R19.7 Diarrhea, unspecified; B34.9 Viral infection, unspecified; R09.81 Nasal congestion; R05.9 Cough, unspecified
CPT/HCPCS: 80053; 81001; 83690; 84703; 85025; 87631; 96361; 96374; 99283; A4216; J2405

== ENCOUNTER 2024-07-19 17:58 | Emergency (ER) | payer MEDICAID, SELFPAY ==
[2024-07-19 17:59] VITALS: BP 132/81; PULSE 60; RESP 14; TEMP 36.3; O2SAT 98; BMI 36.8
[2024-07-19 18:04] VITALS: O2SAT 99
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
[2024-07-19] MEDS: Acetaminophen 500 MG Tablet 1000 MG PO (19:33)
[2024-07-19 19:59] VITALS: PULSE 78; RESP 16
[2024-07-19 20:18] VITALS: BP 132/81; PULSE 78; RESP 16; TEMP 36.3; O2SAT 99
== END 2024-07-19 20:23 | disposition home or self-care (01) ==
PROVIDERS: Emergency Provider Emergency Medicine; PCP Family Medicine; Visit Provider Emergency Medicine
DX: S16.1XXA Strain of muscle, fascia and tendon at neck level, initial encounter (principal); S40.011A Contusion of right shoulder, initial encounter; V89.2XXA Person injured in unspecified motor-vehicle accident, traffic, initial encounter
CPT/HCPCS: 71046; 72125; 73030; 99284